=== PATIENT | female | born 1985 | race Caucasian/White ===

== ENCOUNTER 2018-07-29 21:07 | Emergency (ER) | payer OTHER, MEDICAID, SELFPAY ==
[2018-07-29 21:10] VITALS: BP 134/90; PULSE 73; RESP 18; TEMP 36.8; O2SAT 98
--- NOTE | 2018-07-29 21:34 | ED.URI ---
HPI - URI/Sore Throat <MARYANA Andres - Last Filed: 07/29/18 21:40> General Chief Complaint: Upper Respiratory Symptoms Stated Complaint: stuffy nose and facial pain Time Seen by Provider: 07/29/18 21:18 Source: patient Mode of arrival: ambulatory Limitations: no limitations History of Present Illness HPI Narrative: the patient is a 33-year-old female nonsmoker presents with a chief complaint of stuffy nose and sinus pain starting on Thursday. She states she woke up Thursday with a stuffy nose and developed sinus pain yesterday. She denies any fevers nausea vomiting diarrhea. She states she has an occasional cough but nothing serious. She denies any chest pain or shortness of breath. She states she cannot breathe through her nose because is stuffy. She has taken occasional kmvm-ght-hdwiedd cold medication for her symptoms. She has not tried any nasal rinse. She has not called her primary care provider. Related Data Previous Rx's Medication Instructions Recorded ketoconazole [Nizoral] 2 % TOPICAL 3-4 X A WEEK #120 ml 12/31/12 Allergies Allergy/AdvReac Type Severity Reaction Status Date / Time No Known Drug Allergies Allergy Verified 07/29/18 21:10 Review of Systems <MARYANA Andres - Last Filed: 07/29/18 21:40> Review of Systems GENERAL: Denies chills, fatigue, malaise, fever, sweats. HEENT: See HPI RESPIRATORY: Denies dyspnea, cough, wheezing, hemoptysis, sputum. CARDIOVASCULAR: Denies chest pain, palpitations, orthopnea, edema, GASTROINTESTINAL: Denies nausea, vomiting, abdominal pain, diarrhea, constipation, melena. : Denies dysuria, frequency, incontinence, hematuria, urinary retention. MUSCULOSKELETAL: denies weakness, joint pain, or bony pain SKIN: Denies rash, skin lesions, or other NEUROLOGIC: Denies weakness, headache, numbness, change in speech, confusion, seizures, incoordination. PSYCHIATRIC: No concerning psychosocial issues. 12 point review of systems is negative except for those stated above PFSH <MARYANA Andres - Last Filed: 07/29/18 21:40> Social History Smoking Status: Never smoker Social History Smoking Status: Never smoker Exam <MARYANA Andres - Last Filed: 07/29/18 21:40> Narrative Exam Narrative: GENERAL: This is a well-nourished, well-developed patient, no acute distress HEAD: Atraumatic. Normocephalic. No temporal or scalp tenderness. pain to palpation of right sinuses, especially frontal EYES: Pupils equal round and reactive. Extraocular motions intact. No scleral icterus. No injection or drainage. ENT: Nose without bleeding, purulent drainage or septal hematoma. Throat without erythema, tonsillar hypertrophy or exudate. Uvula midline. Airway patent. bilateral TMs pearly cline. NECK: Trachea midline. No JVD or lymphadenopathy. Supple, nontender, no meningeal signs. CARDIOVASCULAR: Regular rate and rhythm without murmurs, gallops, or rubs. RESPIRATORY: Clear to auscultation. Breath sounds equal bilaterally. No wheezes, rales, or rhonchi. No cough. No increased respiratory effort. No accessory muscle use. GASTROINTESTINAL: Abdomen soft, non-tender, nondistended. No hepato-splenomegaly, or palpable masses. No guarding. EXTREMITIES: No clubbing, cyanosis, or edema. No joint tenderness, effusion, or edema noted. BACK: Nontender without deformity or crepitance. No flank tenderness. NEURO: AOx3. SKIN: No rash or erythema. Initial Vital Signs Initial Vital Signs: Vital Signs Temperature 98.3 F 07/29/18 21:10 Pulse Rate 73 07/29/18 21:10 Respiratory Rate 18 07/29/18 21:10 Blood Pressure 134/90 07/29/18 21:10 Pulse Oximetry 98 07/29/18 21:10 <Derrell Andrade DO - Last Filed: 07/29/18 23:02> Initial Vital Signs Initial Vital Signs: Vital Signs Temperature 98.3 F 07/29/18 21:10 Pulse Rate 73 07/29/18 21:10 Respiratory Rate 18 07/29/18 21:10 Blood Pressure 134/90 07/29/18 21:10 Pulse Oximetry 98 07/29/18 21:10 Course <MARYANA Andres - Last Filed: 07/29/18 21:40> Vital Signs - 8 hr 07/29/18 21:10 Temperature 98.3 F Pulse Rate 73 Respiratory Rate 18 Blood Pressure 134/90 Pulse Oximetry 98 <Derrell Andrade DO - Last Filed: 07/29/18 23:02> Vital Signs - 8 hr 07/29/18 21:10 Temperature 98.3 F Pulse Rate 73 Respiratory Rate 18 Blood Pressure 134/90 Pulse Oximetry 98 MDM - URI/Sore Throat <MARYANA Andres - Last Filed: 07/29/18 21:40> MDM Narrative Medical decision making narrative: The patient has no signs of systemic infection at this point time. Chest about a sinus infection, but discussed that she is afebrile and has not had symptoms for the expected duration of a bacterial sinus infection. I discussed at length with her controlling her symptoms via [id number]-mqd-arqdcya remedies including nasal rinse, Flonase and Sudafed. I discussed at length that she should follow up with primary care provider. Discussed return precautions of chest pain, shortness of breath or acute concerns. Patient questions or concerns upon discharge. Discharge Plan Departure Patient Disposition: Home Clinical Impression: Upper respiratory infection Qualifiers: URI type: unspecified viral URI Qualified Code(s): J06.9 - Acute upper respiratory infection, unspecified Discharge Date/Time: 07/29/18 21:44 Interventions: ED Discharge Assessment Last Done: 07/29/18 21:43 Instructions: DI for Viral Upper Respiratory Infection -- Adult Activity Restrictions/Additional Instructions: Please try use of a sinus rinse combined with use of Flonase. This should help with her sinus pain. Please take grrm-qjv-zuowffd Tylenol and/or ibuprofen. You can always try Sudafed instead of the vtbs-mpb-kxhptry cold medication her currently taking. Please rest and push fluids. Please follow up with primary care provider for new or worsening symptoms. please come back to emergency department for any acute concerns such as chest pain shortness of breath or concern of heart attack or stroke Prescriptions: No Action ketoconazole [Nizoral] 2 % shampoo 2 % Topical 3-4 X A WEEK Qty: 120 RF: 6 <Derrlel Andrade DO - Last Filed: 07/29/18 23:02> Cosign ED Attending Cosignature Attestation: I was available for consultation during this patient's emergency department encounter
--- NOTE | 2018-07-29 21:39 | ED_ITS ---
HPI - URI/Sore Throat <MARYANA Andres - Last Filed: 07/29/18 21:40> General Chief Complaint: Upper Respiratory Symptoms Stated Complaint: stuffy nose and facial pain Time Seen by Provider: 07/29/18 21:18 Source: patient Mode of arrival: ambulatory Limitations: no limitations History of Present Illness HPI Narrative: the patient is a 33-year-old female nonsmoker presents with a chief complaint of stuffy nose and sinus pain starting on Thursday. She states she woke up Thursday with a stuffy nose and developed sinus pain yesterday. She denies any fevers nausea vomiting diarrhea. She states she has an occasional cough but nothing serious. She denies any chest pain or shortness of breath. She states she cannot breathe through her nose because is stuffy. She has taken occasional uazf-dvg-ikfzgpi cold medication for her symptoms. She has not tried any nasal rinse. She has not called her primary care provider. Related Data Previous Rx's Medication Instructions Recorded ketoconazole [Nizoral] 2 % TOPICAL 3-4 X A WEEK #120 ml 12/31/12 Allergies Allergy/AdvReac Type Severity Reaction Status Date / Time No Known Drug Allergies Allergy Verified 07/29/18 21:10 Review of Systems <MARYANA Andres - Last Filed: 07/29/18 21:40> Review of Systems GENERAL: Denies chills, fatigue, malaise, fever, sweats. HEENT: See HPI RESPIRATORY: Denies dyspnea, cough, wheezing, hemoptysis, sputum. CARDIOVASCULAR: Denies chest pain, palpitations, orthopnea, edema, GASTROINTESTINAL: Denies nausea, vomiting, abdominal pain, diarrhea, constipation, melena. : Denies dysuria, frequency, incontinence, hematuria, urinary retention. MUSCULOSKELETAL: denies weakness, joint pain, or bony pain SKIN: Denies rash, skin lesions, or other NEUROLOGIC: Denies weakness, headache, numbness, change in speech, confusion, seizures, incoordination. PSYCHIATRIC: No concerning psychosocial issues. 12 point review of systems is negative except for those stated above PFSH <MARYANA Andres - Last Filed: 07/29/18 21:40> Social History Smoking Status: Never smoker Social History Smoking Status: Never smoker Exam <MARYANA Andres - Last Filed: 07/29/18 21:40> Narrative Exam Narrative: GENERAL: This is a well-nourished, well-developed patient, no acute distress HEAD: Atraumatic. Normocephalic. No temporal or scalp tenderness. pain to palpation of right sinuses, especially frontal EYES: Pupils equal round and reactive. Extraocular motions intact. No scleral icterus. No injection or drainage. ENT: Nose without bleeding, purulent drainage or septal hematoma. Throat without erythema, tonsillar hypertrophy or exudate. Uvula midline. Airway patent. bilateral TMs pearly cline. NECK: Trachea midline. No JVD or lymphadenopathy. Supple, nontender, no m eningeal signs. CARDIOVASCULAR: Regular rate and rhythm without murmurs, gallops, or rubs. RESPIRATORY: Clear to auscultation. Breath sounds equal bilaterally. No wheezes, rales, or rhonchi. No cough. No increased respiratory effort. No accessory muscle use. GASTROINTESTINAL: Abdomen soft, non-tender, nondistended. No hepato- splenomegaly, or palpable masses. No guarding. EXTREMITIES: No clubbing, cyanosis, or edema. No joint tenderness, effusion, or edema noted. BACK: Nontender without deformity or crepitance. No flank tenderness. NEURO: AOx3. SKIN: No rash or erythema. Initial Vital Signs Initial Vital Signs: Vital Signs Temperature 98.3 F 07/29/18 21:10 Pulse Rate 73 07/29/18 21:10 Respiratory Rate 18 07/29/18 21:10 Blood Pressure 134/90 07/29/18 21:10 Pulse Oximetry 98 07/29/18 21:10 <Derrell Andrade DO - Last Filed: 07/29/18 23:02> Initial Vital Signs Initial Vital Signs: Vital Signs Temperature 98.3 F 07/29/18 21:10 Pulse Rate 73 07/29/18 21:10 Respiratory Rate 18 07/29/18 21:10 Blood Pressure 134/90 07/29/18 21:10 Pulse Oximetry 98 07/29/18 21:10 Course <MARYANA Andres - Last Filed: 07/29/18 21:40> Vital Signs - 8 hr 07/29/18 21:10 Temperature 98.3 F Pulse Rate 73 Respiratory Rate 18 Blood Pressure 134/90 Pulse Oximetry 98 <Derrell Andrade DO - Last Filed: 07/29/18 23:02> Vital Signs - 8 hr 07/29/18 21:10 Temperature 98.3 F Pulse Rate 73 Respiratory Rate 18 Blood Pressure 134/90 Pulse Oximetry 98 MDM - URI/Sore Throat <ERLIN Andres-ARIELLE - Last Filed: 07/29/18 21:40> MDM Narrative Medical decision making narrative: The patient has no signs of systemic infection at this point time. Chest about a sinus infection, but discussed that she is afebrile and has not had symptoms for the expected duration of a bacterial sinus infection. I discussed at length with her controlling her sy mptoms via lsdp-qql-attepdh remedies including nasal rinse, Flonase and Sudafed. I discussed at length that she should follow up with primary care provider. Discussed return precautions of chest pain, shortness of breath or acute concerns. Patient questions or concerns upon discharge. Discharge Plan Departure Patient Disposition: Home Clinical Impression: Upper respiratory infection Qualifiers: URI type: unspecified viral URI Qualified Code(s): J06.9 - Acute upper respiratory infection, unspecified Discharge Date/Time: 07/29/18 21:44 Interventions: ED Discharge Assessment Last Done: 07/29/18 21:43 Instructions: DI for Viral Upper Respiratory Infection -- Adult Activity Restrictions/Additional Instructions: Please try use of a sinus rinse combined with use of Flonase. This should help with her sinus pain. Please take bfky-ccl-yvevdxj Tylenol and/or ibuprofen. You can always try Sudafed instead of the xczs-vxs-ifufjrp cold medication her currently taking. Please rest and push fluids. Please follow up with primary care provider for new or worsening symptoms. please come back to emergency department for any acute concerns such as chest pain shortness of breath or concern of heart attack or stroke Prescriptions: No Action ketoconazole [Nizoral] 2 % shampoo 2 % Topical 3-4 X A WEEK Qty: 120 RF: 6 <Derrell Andrade DO - Last Filed: 07/29/18 23:02> Cosign ED Attending Cosignature Attestation: I was available for consultation during this patient's emergency department encounter
== END 2018-07-29 21:44 | disposition home or self-care (01) ==
PROVIDERS: Emergency Provider Nurse Practitioner Family
DX: J06.9 Acute upper respiratory infection, unspecified (principal)
CPT/HCPCS: 99282

== ENCOUNTER → 2019-02-14 10:42 | Outpatient (CLI) | payer OTHER, MEDICAID, SELFPAY ==
--- NOTE | 2019-02-14 | DI.US.S_ITS ---
PROCEDURE: US THYROID INDICATIONS: NONTOXIC GOITER TECHNIQUE: Real-time scanning was performed of the thyroid gland, with image documentation. COMPARISON: None. FINDINGS: Right: Thyroid lobe measures 5.1 x 1.9 x 1.3 cm, and is homogeneous in echotexture. Left: Thyroid lobe measures 4.5 x 1.8 x 1.3 cm, and is homogenous in echotexture. Isthmus: 3.5 mm thick. IMPRESSION: Normal thyroid. Dictated by: Kilo MIKE Interpreted: Radha Chen MD on 02/14/2019 at 11:46 Approved by: Radha Chen M.D. on 02/14/2019 at 13:10
== END ==
PROVIDERS: Visit Provider Physician Assistant Medical
DX: E04.9 Nontoxic goiter, unspecified (principal)
CPT/HCPCS: 76536

== ENCOUNTER → 2020-01-16 16:00 | Outpatient (CLI) | payer OTHER, SELFPAY ==
[2020-01-17 07:38] LABS: COVID19 Sendout Not Detected (Not Detect)
== END ==
PROVIDERS: Visit Provider Physician Assistant
DX: Z11.59 Encounter for screening for other viral diseases (principal)
CPT/HCPCS: 87635

== ENCOUNTER 2020-01-19 10:48 | Day surgery (SDC) | payer OTHER, SELFPAY ==
[2020-01-16 14:52] VITALS: BMI 39.2
[2020-01-19] VITALS (7 sets, daily range): BP systolic 123–134; BP diastolic 69–85; PULSE 69–105; RESP 12–16; TEMP 35.9–36.4; O2SAT 95–99; BMI 39.2
[2020-01-19] MEDS: LACTATED RINGERS 1,000 ML 42 ML IV (11:14)
--- NOTE | 2020-01-19 12:58 | SUR.PREOP ---
Patient still waiting to go into surgery. Notified patient of delay and apologized. Patient verbalizes understanding. No needs at this time.
--- NOTE | 2020-01-19 13:20 | PM.PREOP ---
Pre-operative Note COVID-19 COVID-19 status: Negative Result date/Date tested (Pos, Neg/Pending): 01/16/20 Interval Note History & Physical reviewed/Exam performed by Physician: Yes Changes to H&P: No
--- NOTE | 2020-01-19 13:55 | SUR.OPER ---
Supine on padded OR bed, head on pillow, arms secured on padded arm boards at <90 degrees abduction, legs uncrossed, safety belt at thigh, tape over blanket over lower legs.
[2020-01-19] MEDS: BUPIVACAINE 0.25% W/ EPI 30 ML VIAL INJ (14:02)
[2020-01-19] MEDS: LIDOCAINE 1% W/EPI 20 ML INJ (14:04)
--- NOTE | 2020-01-19 14:18 | P.OP_ITS ---
Operative Date/Time/Diagnoses Date of procedure: 01/19/20 Time of procedure: 14:15 Pre-op diagnosis: Chronic tonsillitis, tonsil stones, throat pain, respiratory obstruction Post-op diagnosis: same Procedure & Clinicians Procedure: Tonsillectomy Same procedure as scheduled: Yes Indications: 34-year-old female with the above diagnoses incompletely managed with medical therapy presents for the above procedure. Following discussion of the material risks benefits complications and alternatives, she elected to proceed. Surgeon: Beto Amador Click Yes if Unassisted: Yes Anesthesia Type: General and Local Operative Notes Findings: Intact palate single uvula, 2 to 3+ flap, elongated, cryptic tonsils with significant stones present. No significant adenoid tissue Closure Type: not applicable Specimen(s): none sent Estimated Blood Loss (mL): 40 Blood products transfused: none Procedure in detail: Following identification and confirmation of consent the patient was brought to the operating room suite and placed in the supine position. General endotracheal anesthesia was administered. A head wrap, shoulder roll, and mouth gag were placed and a red rubber catheter was inserted through the nostril and out the mouth to retract the soft palate. There was no significant adenoid tissue. The left tonsil was retracted medially and suction electrocautery on a setting of 30 was used to dissect the tonsil in a subcapsular plane, followed by hemosta sis with the same. This process was repeated on the right side with identical findings. The tonsillar fossae were superficially infiltrated bilaterally with a 1:1 mixture of 1% lidocaine 1 100,000 epinephrine and 0.25% Marcaine 1 to 204649 epinephrine. Mouth gag and rubber catheter were removed and the patient was extubated in the operating room and taken to the recovery room in stable condition without known complication. Complications: none Post-operative Condition: stable Disposition: same day surgery Plan for aftercare: Tylenol alternating with Advil every 3 hours, oxycodone as needed for severe breakthrough pain. Push fluids, call with any questions.
[2020-01-19] MEDS: OXYCODONE IR 5 MG TABLET PO (14:39)
[2020-01-19] MEDS: fentaNYL 100 MCG/2 ML INJ IV (14:48)
--- NOTE | 2020-01-19 14:49 | SUR.PHASEII ---
Pt brought over to phase 2 and experiencing increasing pain, fentanyl 50mcg given iv. Pt placed on constant monitoring and stable
--- NOTE | 2020-01-19 15:37 | SUR.PHASEII ---
1530-Pt dcd via [facility] in stable condition with all belongings and no c/o, verbalizes understands all dc instructions
== END 2020-01-19 15:30 | disposition home or self-care (01) ==
PROVIDERS: Referring Provider Otolaryngology; Visit Provider Otolaryngology
PROC: (CPT 42826; principal; 2020-01-19 12:15)
DX: J35.01 Chronic tonsillitis (principal); J35.8 Other chronic diseases of tonsils and adenoids; J98.8 Other specified respiratory disorders
CPT/HCPCS: 42826; J1100; J2250; J2405; J2704; J3010

== ENCOUNTER 2024-09-03 17:34 | Observation (INO) | payer SELFPAY ==
[2024-09-03] VITALS (16 sets, daily range): BP systolic 127–158; BP diastolic 71–93; PULSE 65–95; RESP 16; TEMP 36.9; O2SAT 98–100; BMI 41.9
[2024-09-03 18:11] LABS: Urine Volume 10mL (spun)
[2024-09-03 18:12] LABS: Amorphous Sediment Urine 1+; Bacteria Urine Few (2-10); Culture Indicated Urine Specimen Cultured; RBC Urine None Seen (0-5/HPF); Renal Epithelial Cells Urine 0-1/HPF (0-1/HPF); Squamous Epithelial Cell Urine 5-10 /HPF (0-5/HPF); WBC Urine 5-10/HPF (0-5/HPF)
[2024-09-03 18:24] LABS: Add Manual Diff / Slide Review NO; Basophils Absolute Auto 100 /uL (0-100); Basophils Percent Auto 0.6 % (0-2); Eosinophils Absolute Auto 100 /uL (0-450); Eosinophils Percent Auto 0.6 % (2-4); Hematocrit 35.4 % (36-46); Lymphocytes Absolute Auto 2100 /uL (1100-4500); Lymphocytes Percent Auto 17.6 % (25-40); Mean Corpuscular HGB Conc 33.9 % (30-36); Mean Corpuscular Hemoglobin 30.3 PG (26-34); Mean Corpuscular Volume 89.5 fL (80-100); Monocytes Absolute Auto 500 /uL (0-900); Monocytes Percent Auto 4.5 % (3-14); Neutrophils Absolute Auto 9100 /uL (1500-7000); Neutrophils Percent Auto 76.7 % (50-75); Platelet Count 362 X10^3/uL (150-400); Red Blood Cell Count 3.95 X10^6/uL (4.0-5.2); Red Cell Distribution Width 14.1 % (11.6-14.8); White Blood Cell Count 11.8 X10^3/uL (4.5-11.0)
[2024-09-03 18:33] LABS: Alanine Aminotransferase 19 IU/L (<35); Albumin 4.4 g/dL (3.5-5.0); Albumin Globulin Ratio 1.4 (1.0-2.8); Alkaline Phosphatase 56 U/L (38-126); Aspartate Aminotransferase 29 IU/L (14-36); BUN Creatinine Ratio 18.5 (6-22); Bilirubin Total 0.5 mg/dL (0.2-1.3); Blood Urea Nitrogen 12 mg/dL (7-17); Calcium 9.1 mg/dL (8.4-10.2); Carbon Dioxide 26 mmol/L (22-32); Chloride 100 mmol/L (98-107); Estimated Glomerular Filt Rate > 60 mL/min (>60); Globulin 3.2 g/dL (1.7-4.1); Glucose 93 mg/dL (70-99); HEMOLYSIS 30 (0-50); Lipase 30 U/L (23-300); Potassium 4.3 mmol/L (3.4-5.1); Sodium 134 mmol/L (137-145); Total Protein 7.6 g/dL (6.3-8.2)
[2024-09-03] MEDS: ONDANSETRON 4 MG/2 ML INJ IV ×3 (18:55→23:25)
--- NOTE | 2024-09-03 19:13 | ED_ITS ---
HPI - Abdominal Pain General Chief Complaint: Abdominal Pain Stated Complaint: Abdominal Pain, Nausea Time Seen by Provider: 09/03/24 18:03 Source: patient Mode of arrival: Ambulatory History of Present Illness HPI narrative: 39-year-old female presents with intermittent right upper quadrant epigastric pain along with nausea radiating to between the shoulder blades for the past 2 weeks worse today. She last ate pretzels and last had a bowel movement earlier today. She is nauseous but denies any chest pain, shortness breath, cough, vomiting, diarrhea, or constipation or rectal bleeding. Other than what is stated 14 point review of systems name Related Data Previous Rx's Medication Instructions Recorded ketoconazole 2 % shampoo (Nizoral) 2 % topical 3-4 X A WEEK #120 mL 12/31/12 Allergies Allergy/AdvReac Type Severity Reaction Status Date / Time No Known Drug Allergies Allergy Verified 01/19/20 11:00 Review of Systems Review of Systems ROS Unobtainable: All systems reviewed & are unremarkable except as noted in HPI and below Patient History Medical History (Updated 09/03/24 @ 23:15 by Brian Matthews DO) Routine screening for STI (sexually transmitted infection) Respiratory obstruction Sore throat Recurrent tonsillitis Tonsil stone Social History household members: significant other Smoking Status: Never smoker alcohol intake: current Smoking Status: Never smoker alcohol intake frequency: holidays/special occasions only Exam Narrative Exam Narrative: GENERAL: [39] year old patient appears stated age. Well-developed patient, in mild distress. HEAD: Atraumatic. Normocephalic. EYES: Pupils equal round and reactive. Extraocular motions intact. No scleral icterus. No injection or drainage. ENT: Nose without bleeding, purulent drainage. Throat without erythema, tonsillar hypertrophy or exudate. Airway patent. NECK: Trachea midline. Non tender CARDIOVASCULAR: Regular rate and rhythm without murmurs, gallops, or rubs. RESPIRATORY: Clear to auscultation. Breath sounds equal bilaterally. No wheezes, rales, or rhonchi. GASTROINTESTINAL: Abdomen soft, RUQ/epigastric TTP, but no r/r/g, nondistended. EXTREMITIES: No edema or joint tenderness. BACK: Nontender without deformity or crepitance. No flank tenderness. NEURO: AOx3. SKIN: No rash or erythema of visible areas Initial Vital Signs Initial Vital Signs: Vital Signs Temperature 98.5 F 09/03/24 17:45 Pulse Rate 77 09/03/24 17:45 Respiratory Rate 16 09/03/24 17:45 Blood Pressure 140/90 09/03/24 17:45 Pulse Oximetry 99 09/03/24 17:45 Oxygen Delivery Method Room Air 09/03/24 17:45 Course Orders Ordered: ED Orders 09/03/24 17:50 Urine Culture Stat Urine Microscopic Stat 09/03/24 18:14 Complete Blood Count AUTO DIFF Stat Comprehensive Metabolic Panel Stat Lipase Stat 09/03/24 19:14 CT abdomen pelvis w con Stat 09/03/24 20:34 US abdomen limited Stat Ondansetron HCl (Ondansetron 4 Mg/2 Ml Inj) 4 mg IV NOW PRN PRN Reason: Nausea And Vomiting Last Admin: 09/03/24 21:54 Dose: 4 mg Documented By: Admin: 09/03/24 18:55 Dose: 4 mg Documented By: FLAKITO Ondansetron HCl (Ondansetron 4 Mg Odt) 4 mg PO NOW PRN PRN Reason: Nausea And Vomiting Discontinued Medications Hydromorphone HCl (Hydromorphone 1 Mg Inj) 1 mg IV NOW ONE Stop: 09/03/24 19:16 Last Admin: 09/03/24 19:28 Dose: 1 mg Documented By: LUCIANA Hydromorphone HCl (Hydromorphone 1 Mg Inj) 1 mg IM NOW ONE Stop: 09/03/24 21:44 Last Admin: 09/03/24 21:55 Dose: Not Given Documented By: LUCIANA Hydromorphone HCl (Hydromorphone 1 Mg Inj) 1 mg IV NOW ONE Stop: 09/03/24 21:54 Last Admin: 09/03/24 21:54 Dose: 1 mg Documented By: LUCIANA Lactated Ringer's (Lactated Ringers) 1,000 mls @ 1,000 mls/hr IV BOLUS ONE Stop: 09/03/24 20:13 Last Infusion: 09/03/24 21:22 Dose: Infused Documented By: Admin: 09/03/24 19:28 Dose: 1,000 mls/hr Documented By: LUCIANA Piperacillin Sod/Tazobactam (Sod 4.5 gm/ Sodium Chloride) 100 mls @ 200 mls/hr IV NOW ONE Stop: 09/03/24 22:24 Last Admin: 09/03/24 22:33 Dose: 200 mls/hr Documented By: LUCIANA Vital Signs Vital signs: Vital Signs - 8 hr 09/03/24 17:45 09/03/24 18:16 09/03/24 18:17 Temperature 98.5 F Pulse Rate 77 73 Respiratory Rate 16 Blood Pressure 140/90 137/83 Pulse Oximetry 99 100 Oxygen Delivery Method Room Air 09/03/24 18:17 09/03/24 18:30 09/03/24 18:30 Temperature Pulse Rate 73 69 Respiratory Rate Blood Pressure 140/82 Pulse Oximetry 100 100 Oxygen Delivery Method Room Air 09/03/24 19:00 09/03/24 19:00 09/03/24 19:33 Temperature Pulse Rate 65 79 Respiratory Rate Blood Pressure 130/83 Pulse Oximetry 98 99 Oxygen Delivery Method 09/03/24 19:34 09/03/24 19:34 09/03/24 20:00 Temperature Pulse Rate 88 Respiratory Rate Blood Pressure 141/85 H 141/78 H Pulse Oximetry 100 Oxygen Delivery Method 09/03/24 20:00 09/03/24 20:30 09/03/24 20:30 Temperature Pulse Rate 68 68 Respiratory Rate Blood Pressure 147/89 H Pulse Oximetry 100 99 Oxygen Delivery Method 09/03/24 21:00 09/03/24 21:00 09/03/24 21:30 Temperature Pulse Rate 67 Respiratory Rate Blood Pressure 158/93 H 147/88 H Pulse Oximetry 100 Oxygen Delivery Method 09/03/24 21:30 09/03/24 22:00 09/03/24 22:00 Temperature Pulse Rate 72 92 H Respiratory Rate Blood Pressure 141/87 H Pulse Oximetry 100 98 Oxygen Delivery Method MDM - Abdominal Pain Lab Data 09/03/24 18:14 09/03/24 18:14 Labs: Lab Results 09/03/24 09/03/24 Range/Units 17:50 18:14 WBC 11.8 H (4.5-11.0) X10^3/uL RBC 3.95 L (4.0-5.2) X10^6/uL Hgb 12.0 (12.0-16.0) g/dL Hct 35.4 L (36-46) % MCV 89.5 (80-100) fL MCH 30.3 (26-34) PG MCHC 33.9 (30-36) % RDW 14.1 (11.6-14.8) % Plt Count 362 (150-400) X10^3/uL Neut % (Auto) 76.7 H (50-75) % Lymph % (Auto) 17.6 L (25-40) % Jerome % (Auto) 4.5 (3-14) % Eos % (Auto) 0.6 L (2-4) % Baso % (Auto) 0.6 (0-2) % Neut # (Auto) 9100 H (6833-4737) /uL Lymph # (Auto) 2100 (4510-4995) /uL Jerome # (Auto) 500 (0-900) /uL Eos # (Auto) 100 (0-450) /uL Baso # (Auto) 100 (0-100) /uL Sodium 134 L (137-145) mmol/L Potassium 4.3 (3.4-5.1) mmol/L Chloride 100 (98-107) mmol/L Carbon Dioxide 26 (22-32) mmol/L BUN 12 (7-17) mg/dL Creatinine 0.65 (0.52-1.04) mg/dL Estimated GFR > 60 (>60) mL/min BUN/Creatinine Ratio 18.5 (6-22) Glucose 93 (70-99) mg/dL Calcium 9.1 (8.4-10.2) mg/dL Total Bilirubin 0.5 (0.2-1.3) mg/dL AST 29 (14-36) IU/L ALT 19 (<35) IU/L Alkaline Phosphatase 56 (38-126) U/L Total Protein 7.6 (6.3-8.2) g/dL Albumin 4.4 (3.5-5.0) g/dL Globulin 3.2 (1.7-4.1) g/dL Albumin/Globulin Ratio 1.4 (1.0-2.8) Lipase 30 (23-300) U/L Urine RBC None seen (0-5/HPF) Urine WBC 5-10/hpf H (0-5/HPF) Ur Squamous Epith Cells 5-10 /hpf H (0-5/HPF) Ur Renal Epithelial Cell 0-1/hpf (0-1/HPF) Amorphous Sediment 1+ Urine Bacteria Few (2-10) H (None) Ur Culture Indicated? Specimen cultured Vol Urine Centrifuged 10ml (spun) Point of care testing: Point of Care Testing Test Results Negative Urine Dip Bedside Urine Glucose Negative Bedside Urine Bilirubin - Negative Bedside Urine Ketone - Negative Urine Specific Crane 1.010 Bedside Urine Occult Blood - Negative Bedside Urine pH 6.5 Bedside Urine Protein - Negative Bedside Urine Urobilinogen - Negative Bedside Urine Nitrite - Negative Bedside Urine Leukocytes +/- [address] scan - abdomen/pelvis: Radiologist's Impression: [address] [address] [address] Scan Report Signed Patient: Evangelina Milton MR#: [id number] : 1985 Acct:[id number] Age/Sex: 39 / F Date of Service: 09/03/24 Loc: ED Accession Number: [id number] Procedure: CT abdomen pelvis w con Ordering Provider: Brian Matthews D.O. PROCEDURE: CT ABDOMEN PELVIS W CON INDICATIONS: abd pain/n/v TECHNIQUE: After the administration of intravenous contrast, axial sections acquired from the lung bases to the pubic symphysis. Coronal and sagittal reformats were performed. For radiation dose reduction, the following was used: automated exposure control, adjustment of mA and/or kV according to patient size. COMPARISON: None. FINDINGS: Image quality: Diagnostic Lower chest: No significant lower lung abnormality. Normal heart size Liver: Segment 8/liver dome cyst. No solid lesion identified Gallbladder and biliary system: Distended gallbladder with [id number] wall thickening and ill-defined heterogeneous material CBD measures 6 mm, which is within normal limits Pancreas: Loss of fatty lobulations. Posterior body low-density region measures 1.1 cm. Spleen: Nonenlarged Adrenals: No discrete nodules Kidneys: No solid renal mass. No hydronephrosis. Vessels and lymph nodes: The main portal vein is patent. No abdominal aortic aneurysm. No enlarged lymph nodes by size criteria. Bowel and peritoneum: No small bowel obstruction. No pathologic ascites. No drainable abscess. Body wall: Small fat containing umbilical hernia Pelvis: Bladder is unremarkable. Reproductive organs are unremarkable on limited CT evaluation. Probable right corpus luteum cyst Bones: No aggressive appearing osseous abnormality. IMPRESSION: Distended gallbladder with internal heterogeneity and mild wall thickening. Correlate ultrasound for cholecystitis and gallstones. Loss of pancreatic fatty lobulations and ill-defined hypoechoic region in the posterior body measuring 1 cm. Correlate lipase for pancreatitis. Pancreas protocol MRI also suggested for surveillance of the posterior hypoechoic lesion, which may represent a cystic or solid lesion versus pseudocyst. Other findings above. Dictated by: Keegan Cruz M.D. on 09/03/2024 at 20:20 Approved by: Keegan Cruz M.D. on 09/03/2024 at 20:24 US - abdomen: Radiologist's Impression: [address] [address] Ultrasound Report Signed Patient: Evangelina Milton MR#: [id number] : 1985 Acct:[id number] Age/Sex: 39 / F Date of Service: 09/03/24 Loc: ED Accession Number: [id number] Procedure: US abdomen limited Ordering Provider: Brian Matthews D.O. PROCEDURE: US ABDOMEN LIMITED INDICATIONS: RUQ U/S per CT scan recommendation TECHNIQUE: Real-time focused scanning was performed of the abdomen, with image documentation. COMPARISON: [facility], CT, CT ABDOMEN PELVIS W CON, 09/03/2024, 19:23. FINDINGS: Liver measures 19 cm with increased echogenicity. Cholelithiasis with sonographic Downing sign. Obstructing stone is seen at the neck. There is also wall thickening. CBD measures 6 mm. Unremarkable pancreas IMPRESSION: Calculus cholecystitis confirmed on ultrasound. Increased hepatic echogenicity, nonspecific but most commonly due to steatosis On re-review of CT, there is a possible subcentimeter lesion in segment 7 of the liver, too small to characterize. There is also prominence of the fissures Given possibility of background liver disease, a nonurgent liver MRI is suggested to further evaluate. Dictated by: Keegan Cruz M.D. on 09/03/2024 at 22:42 Approved by: Keegan Cruz M.D. on 09/03/2024 at 22:45 MDM Narrative Medical decision making narrative: All lab work, vital signs, nurse triage note, medication list, previous ER visits all reviewed. CT scan showed distended gallbladder with Internal heterogenicity and mild wall thickening correlate ultrasound for cholecystitis and gallstones. Ultrasound of the right upper quadrant so calculous cholecystitis cholelithiasis with sonographic Downing's sign obstructing stone is seen at the neck and there is also wall thickening. Patient given fluids pain medicine and Zosyn here. Case discussed with Dr. Estrada surgeon on-call who has graciously accepted the patient for inpatient admission. Differential diagnosis includes cholecystitis, pancreatitis, kidney stone, kidney infection, and appendicitis. Discharge Plan Departure Patient Disposition: Admitted as Observation Clinical Impression: Acute cholecystitis Prescriptions: No Action ketoconazole [Nizoral] 2 % shampoo 2 % Topical 3-4 X A WEEK Qty: 120 6RF Referrals: Miscellaneous,MD Erinn [Primary Care Provider] - Admit Date/Time: 09/03/24 23:13 Admit Provider: Heath Abarca
[2024-09-03] MEDS: LACTATED RINGERS 1,000 ML 1000 ML IV (19:28)
[2024-09-03] MEDS: HYDROMORPHONE 1 MG INJ IV ×3 (19:28→23:25)
--- NOTE | 2024-09-03 20:34 | DI.US.S_ITS ---
PROCEDURE: US ABDOMEN LIMITED INDICATIONS: RUQ U/S per CT scan recommendation TECHNIQUE: Real-time focused scanning was performed of the abdomen, with image documentation. COMPARISON: [facility], CT, CT ABDOMEN PELVIS W CON, 09/03/2024, 19:23. FINDINGS: Liver measures 19 cm with increased echogenicity. Cholelithiasis with sonographic Downing sign. Obstructing stone is seen at the neck. There is also wall thickening. CBD measures 6 mm. Unremarkable pancreas IMPRESSION: Calculus cholecystitis confirmed on ultrasound. Increased hepatic echogenicity, nonspecific but most commonly due to steatosis On re-review of CT, there is a possible subcentimeter lesion in segment 7 of the liver, too small to characterize. There is also prominence of the fissures Given possibility of background liver disease, a nonurgent liver MRI is suggested to further evaluate. Dictated by: Keegan Cruz M.D. on 09/03/2024 at 22:42 Approved by: Keegan Cruz M.D. on 09/03/2024 at 22:45
[2024-09-03] MEDS: PIPERACILLIN/TAZO 4.5 GM in SODIUM CHLORIDE 0.9% 100 ML IV (22:33)
[2024-09-04] VITALS (17 sets, daily range): BP systolic 104–141; BP diastolic 59–93; PULSE 74–116; RESP 2–21; TEMP 35.9–37.1; O2SAT 93–98; BMI 43.4
--- NOTE | 2024-09-04 | PATH_ITS ---
[facility] Accession Number: [id number] No. of containers..01 Tissue . 01 Material submitted: . gallbladder - GALLBLADDER AND CONTENTS . 01 Diagnosis: GALLBLADDER, CHOLECYSTECTOMY: Cholelithiasis with mild chronic active cholecystitis. No evidence of neoplasm. MRV 09/08/2024 1453 Local . 01 Electronically signed: . Rad Covarrubias MD, PhD, Pathologist NPI- [id number] . 01 Gross description: . Received in formalin with two identifiers and gallbladder and contents, is an intact gallbladder, 11.0 x 4.2 x 3.2 cm, hemorrhagic and edematous. The cystic duct margin is inked blue and no pericystic lymph node is identified. The lumen contains multiple yellow faceted calculi up to 1.2 cm in greatest dimension and grossly obstructing the cystic duct admixed with a small amount of clear serous fluid with no bile grossly identified. The mucosa is diffusely erythematous and ragged with adherent yellow to kirk material possibly consistent with exudate. The cross range from 0.4 up to 1.0 cm thick at the edematous areas. No distinct lesions are identified. Personal Shopper sections to include the cystic duct margin and full thickness sections are submitted in A1. ([id number]) /MRV 09/08/2024 0554 Local . 01 Pathologist provided ICD-10: K80.60 . 01 CPT . 046207 Specimen Comment: A courtesy copy of this report has been sent to [facility] Pathology Performed at: [address] [address], [place], [place] [id number] MD Chema Lara MD Phone: [phone]
[2024-09-04] MEDS: LACTATED RINGERS 1,000 ML 125 ML IV ×2 (01:45→13:30)
[2024-09-04] MEDS: HYDROMORPHONE 2 MG INJ IV ×2 (03:39→07:57)
--- NOTE | 2024-09-04 05:04 | PC.NURSE ---
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 Patient is AxOx4, VSS. Reports mod-severe RUQ pain and nausea, medicated as ordered. IVF infusing. Oriented to call-light, verbalized understanding of plan of care. NPO at midnight.
[2024-09-04] MEDS: ONDANSETRON 4 MG/2 ML INJ IV ×2 (06:15→10:53)
--- NOTE | 2024-09-04 08:59 | PM.HP.IH.1 ---
History of Present Illness History of Present Illness Date Patient Seen: 09/04/24 Chief complaint: Abdominal Pain, Nausea Narrative: Intermittent abdominal pain for 2 weeks. It got acutely worse yesterday. Radiographic findings were potentially consistent with acute cholecystitis. She was admitted for definitive management. [facility] Medical History (Updated 09/03/24 @ 23:15 by Brian Matthews DO) Routine screening for STI (sexually transmitted infection) Respiratory obstruction Sore throat Recurrent tonsillitis Tonsil stone Social History household members: significant other Smoking Status: Never smoker alcohol intake: current Meds Home Medications and Allergies Home Medications Medication Instructions Recorded Confirmed Type No Known Home Medications 09/04/24 09/04/24 History Allergies Allergy/AdvReac Type Severity Reaction Status Date / Time No Known Drug Allergies Allergy Verified 01/19/20 11:00 Review of Systems Review of Systems Narrative: Comprehensive review of systems negative to directed questioning with the exception of the previously mentioned chronic conditions. Exam Vital Signs (past 8 hours): - 09/04/24 06:03 Temperature 96.6 F L Pulse Rate 75 Respiratory Rate 19 Blood Pressure 104/66 Pulse Oximetry 97 Oxygen Flow Rate 0 Oxygen Delivery Method Room Air Oxygen Flow Rate 0 Narrative Exam Narrative: In general this is a morbidly obese female alert and oriented x3 in no acute distress. Her pain has resolved for now. Head is normocephalic and atraumatic. Neck is supple. Back is without CVA or spinous process tenderness. Lungs are clear to auscultation. Chest is symmetric nontender with normal inspiratory and expiratory excursion. Heart has a regular rate and rhythm with no murmur or gallop. Abdomen is soft with normal bowel sounds. There is mild right upper quadrant tenderness on deep palpation. There is no guarding. Neurological exam is grossly nonfocal. Extremities manifests full range of motion. Objective Labs 09/03/24 18:14 09/03/24 18:14 Labs: Laboratory Results - last 24 hr 09/03/24 09/03/24 17:50 18:14 WBC 11.8 H RBC 3.95 L Hgb 12.0 Hct 35.4 L MCV 89.5 MCH 30.3 MCHC 33.9 RDW 14.1 Plt Count 362 Neut % (Auto) 76.7 H Lymph % (Auto) 17.6 L [place] % (Auto) 4.5 Eos % (Auto) 0.6 L Baso % (Auto) 0.6 Neut # (Auto) 9100 H Lymph # (Auto) 2100 [place] # (Auto) 500 Eos # (Auto) 100 Baso # (Auto) 100 Sodium 134 L Potassium 4.3 Chloride 100 Carbon Dioxide 26 BUN 12 Creatinine 0.65 Estimated GFR > 60 BUN/Creatinine Ratio 18.5 Glucose 93 Calcium 9.1 Total Bilirubin 0.5 AST 29 ALT 19 Alkaline Phosphatase 56 Total Protein 7.6 Albumin 4.4 Globulin 3.2 Albumin/Globulin Ratio 1.4 Lipase 30 Urine RBC None seen Urine WBC 5-10/hpf H Ur Squamous Epith Cells 5-10 /hpf H Ur Renal Epithelial Cell 0-1/hpf Amorphous Sediment 1+ Urine Bacteria Few (2-10) H Ur Culture Indicated? Specimen cultured Vol Urine Centrifuged 10ml (spun) Assessment & Plan Assessment and plan (1) Acute cholecystitis: Status: Acute Plan This patient's presentation, diagnostics and current physical findings raise the possibility of chronic cholecystitis. In any event she has symptomatic cholelithiasis. I have recommended a laparoscopic cholecystectomy. Alternatives, risks and benefits were discussed in detail. The patient voices understanding and desires to proceed as I have outlined. Time-Based Coding :: [TOTAL MINUTES] spent with patient and on the chart (including review of chart, obtaining history, exam, reviewing outside data, placing orders, documenting exam and treatment plan, and counseling patient) on [DATE]. PROFEE Software Design Manager Document charge(s): Yes
[2024-09-04] MEDS: CEFAZOLIN 2 GM/100 ML PREMIX 100 ML IV (09:29)
[2024-09-04] MEDS: LACTATED RINGERS 1,000 ML 42 ML IV ×2 (09:29→10:52)
[2024-09-04] MEDS: SCOPOLAMINE 1 PATCH TOP (09:29)
[2024-09-04] MEDS: ACETAMINOPHEN IV 1,000 MG/100 ML VIAL 400 MG IV (10:45)
[2024-09-04] MEDS: CEFAZOLIN VIAL 3 GM in SODIUM CHLORIDE 0.9% 100 ML IV (11:28)
--- NOTE | 2024-09-04 11:54 | SUR.OPER ---
Supine on padded OR bed, head on pillow, left arm secured on padded arm board at <90 degrees abduction, right arm tucked at side, foot board on table legs uncrossed, safety belt at thigh, tape over blanket over lower legs.
[2024-09-04] MEDS: BUPIVACAINE 0.5% (PF) 30 ML VIAL INJ (12:17)
--- NOTE | 2024-09-04 12:55 | PM.OP.1 ---
Operative Date/Time/Diagnoses Date of procedure: 09/04/24 Time of procedure: 11:45 Pre-op diagnosis: Acute cholecystitis with cholelithiasis Post-op diagnosis: same Procedure & Clinicians Procedure: Laparoscopic cholecystectomy Same procedure as scheduled: Yes Indications: Acute cholecystitis Surgeon: Heath Sandhu Yes if Unassisted: Yes Anesthesia Type: General Operative Notes Findings: Cholelithiasis with acute cholecystitis Closure Type: primary Specimen(s): other (Gallbladder and contents) Estimated Blood Loss (mL): 25 Procedure in detail: After obtaining informed consent properly identifying the patient the patient was transported to the operating room and was placed on the table in the supine position. general endotracheal anesthesia was induced and the abdomen was prepped and draped in the usual sterile manner. time-out protocol was observed. A vertical midline incision of 3 cm length was made with a 15 blade above the umbilicus with its caudad apex at the umbilical verge. This was carried sharply down onto the linea Alba retraction sutures of 0 Vicryl were placed on either side of midline. A peritoneotomy was made under direct vision between the traction sutures and a 12 mm Arevalo cannula was installed. Pneumoperitoneum was instilled and 5 mm 30 degree angled laparoscope was passed. Three additional ports were placed under direct laparoscopic vision. These were 5 mm ports placed 1 each in the following positions: Subxiphoid, midclavicular line and anterior axillary line, 2 fingerbreadths below the right costal margin. The gallbladder was inspected and was noted to be tense and distended with some gallbladder wall thickening consistent with acute inflammation. The gallbladder was aspirated of 90 mL of turbid hydropic bile. The fundus was retracted anteriorly and cephalad in the indibulin laterally. this afforded excellent exposure of the triangle of Calot where a combination of sharp and blunt dissection with the L hook cautery and [place] dissector demonstrated the cystic duct and artery. The critical view was obtained. These structures were then triply clipped and transected between the clips nearest the gallbladder. The remainder of the procedure consisted of sharp dissection in a plane between the gallbladder wall and gallbladder fossa which proceeded from the infundibulum towards the fundus. The final attachments were taken and the liver edge was allowed to retract. 5 mm scope was withdrawn from the Arevalo and passed through the subxiphoid port. An Endo-Catch specimen extractor was passed into the peritoneal cavity and the specimen was bagged under direct laparoscopic vision. The Arevalo balloon was deflated and the Arevalo, Endo-Catch and specimen were withdrawn from the supraumbilical port site as a unit. The specimen was passed from the field and the Arevalo and 5 mm 30 degree angled scope were restored to their original positions. Subhepatic space. And all irrigant was evacuated. Hemostasis was perfect. Clips were secure. All laparoscopic equipment was withdrawn under direct laparoscopic vision. Pneumoperitoneum was evacuated and ports were withdrawn. The supraumbilical fascial defect was closed with a running 0 Prolene stitch. The margins of the supraumbilical skin wound were coapted with 3-0 Vicryl interrupted inverted deep dermal sutures of 3-0 Vicryl. Skin wounds were then closed with skin bryce. Field blocks of 0.5% Marcaine were instilled at the wounds and dressings were applied. The patient tolerated the procedure well and was transported to the recovery room in good condition. Complications: none Post-operative Condition: stable Disposition: PACU Plan for aftercare: Discharge to home when tolerant of regular diet and pain control adequate.
[2024-09-04] MEDS: METOCLOPRAMIDE 10 MG/2 ML INJ IV (13:18)
[2024-09-04] MEDS: hydrOXYzine 50 MG/ML INJ IM (13:19)
[2024-09-04] MEDS: OXYCODONE IR 5 MG TABLET PO (13:21)
[2024-09-04] MEDS: HYDROCODONE/ACET 5/325 TABLET 1 TAB PO ×2 (15:00→20:20)
--- NOTE | 2024-09-04 15:03 | CM.DANOTE ---
B DCP Assessment Note pt is a 39yo F admitted with sig abdominal pain, OR today for lap eric. PCP Danielle Payer self pay HUMAN RESOURCE ANALYST reviewed EMR. pt down in OR during attempted intervention Per chart, pt lives indep with partner in [place]. works at the [employer]. was hopeful to speak to HUMAN RESOURCE ANALYST about no insurance. Per collection notes, pt was given copy of [employer] packet. HUMAN RESOURCE ANALYST emailed admitting group (not here on Thursday/) to see if pt qualifies for Medicaid. will f/u about INS and or work excuse letter Thursday. P: FANNIE unknown, likely home with boyfriend when medically stable. will continue to follow closely for ASH leonarda/additional DCP needs YE Cao Discharge Planning/Care Management CM Discharge Assessment Start: 09/04/24 00:05 Freq: Status: Active Protocol: Document 09/04/24 15:01 (Rec: 09/04/24 15:03 Desktop) Discharge Planning Assessment Assigned Radio Officer YE Schmid DPOA/Assigned Designee Name glen Barksdale Contact Information [phone] Advance Directives? No History Provided By Patient Prior Living Arrangements Apartment/Condo Household Members significant other Type of transporation used prior to Drives own vehicle admit Independent with ADL's Yes Is patient alert and oriented? Yes Discharge Plan Home Referrals Initiated None needed Review Status In Process Please Provide Date Initial DC 09/04/24 Assessment Was Performed Next Review Type Continued Stay Review
[2024-09-05 01:00] VITALS: O2SAT 98
[2024-09-05] MEDS: HYDROCODONE/ACET 5/325 TABLET 1 TAB PO (01:41)
[2024-09-05 05:00] VITALS: O2SAT 98
[2024-09-05 08:08] VITALS: BP 108/65; PULSE 93; RESP 15; TEMP 36.1; O2SAT 95
--- NOTE | 2024-09-05 08:51 | PM.PN.IH.1 ---
Subjective Subjective Date Patient Seen: 09/05/24 Time Patient Seen: 08:52 Interval history: Feels much better this morning. Tolerant of regular diet. Passing flatus. Incision pain only well-controlled with oral analgesics. Exam Vital Signs (past 8 hours): - 09/05/24 01:00 09/05/24 05:00 09/05/24 08:08 Temperature 97.0 F L Pulse Rate 93 H Respiratory Rate 15 Blood Pressure 108/65 Pulse Oximetry 98 98 95 Oxygen Delivery Method Room Air Room Air Oxygen Flow Rate 0 Oxygen Delivery Method Room Air Oxygen Flow Rate 0 Narrative Exam Narrative: Lungs are clear to auscultation. Heart has a regular rate and rhythm with no murmur or gallop. Abdomen is generally soft with appropriate incisional tenderness. Dressings are dry. Bowel sounds are present. Objective Labs 09/03/24 18:14 09/03/24 18:14 [facility] Medical History (Updated 09/03/24 @ 23:15 by Brian Matthews, DO) Routine screening for STI (sexually transmitted infection) Respiratory obstruction Sore throat Recurrent tonsillitis Tonsil stone Social History household members: significant other Smoking Status: Never smoker alcohol intake: current Assessment & Plan Assessment and plan (1) Acute cholecystitis: Status: Acute Plan Doing well postop day 1 from laparoscopic cholecystectomy. Discharge to home. Follow up with me 7-10 days. Time-Based Coding :: [TOTAL MINUTES] spent with patient and on the chart (including review of chart, obtaining history, exam, reviewing outside data, placing orders, documenting exam and treatment plan, and counseling patient) on [DATE]. 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
[2024-09-05 09:00] VITALS: O2SAT 95
[2024-09-05] MEDS: ACETAMINOPHEN 325 MG TABLET 650 MG PO (09:00)
--- NOTE | 2024-09-05 10:55 | CM.DPC ---
DCP Discharge Home Per Surgeon, pt's pain is controlled and tolerating diet and medically stable to d/c home today with outpt f/u and no identified barriers to discharge. SW met bedside with pt and explained role and she confirms that she lives at home in [place] and has local supportive boyfriend and family and has two kids at home. 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 Pt states she applied for Medicaid health insurance on Thursday09/02/24 a few days ago but had not submitted proof of finances yet. Pt completed the [employer] application and [employer] sent an email yesterday Sun regarding pt's current Self Pay status. SW encouraged pt to call [employer] and [employer] tomorrow as today is a Holiday Memorial Day and SW helped inter-office mail pt's completed [employer] application to [employer]. Pt appreciative and confirms that she has transport home for today and does not anticipate any further needs. Her PCP is still [facility] and pt plans to confirm her health insurance this week in time for outpt f/u with Surgeon/PCP. Plan: Patient to discharge home today via family POV and outpt f/u and no further SW needs at this time. YE Vo
--- NOTE | 2024-09-05 13:50 | PC.NURSE ---
Day shift: Discharge instructions gone over with patient. Patient stated understanding, all questions answered. PIV removed prior to discharge. All belongings with patient. PCT Zonia escorted patient to exit via wheelchair.
== END 2024-09-05 12:30 | disposition home or self-care (01) ==
LOC: ED 18:03 → AC 23:14
PROVIDERS: Emergency Medicine; Admitting Provider Surgery; Emergency Provider Family Medicine; Referring Provider Family Medicine; Visit Provider Surgery
PROC: 0FT44ZZ Resection of Gallbladder, Percutaneous Endoscopic Approach (ICD-10-PCS; CPT 47562; principal; 2024-09-04 11:30)
DX: K80.00 Calculus of gallbladder with acute cholecystitis without obstruction (principal)
CPT/HCPCS: 47562; 36415; 74177; 76705; 80053; 81003; 81015; 81025; 83690; 85025; 87086; 96361; 96365; 96375; 96376; 99222; 99284; G0378; J0131; J0330; J0690; J1100; J1171; J1885; J2405; J2543; J2704; J2765; J3410; J3490; Q9967